=== PATIENT | male | born 1940 | race Caucasian/White ===

== ENCOUNTER 2023-09-25 01:39 | Outpatient (REF) | payer MEDICARE, SELFPAY ==
[2023-09-25 02:49] LABS: Bilirubin Negative (Negative); Blood Small (Negative); Clarity Sl Cloudy (Clear); Glucose Negative (Negative); Ketones 15 mg/dL (Negative); Leukocyte Esterase Small (Negative); Nitrite Negative (Negative); Specific Gravity >= 1.030 (1.005-1.025); Urobilinogen 0.2 mg/dL (Up to 0.2)
[2023-09-25 02:53] LABS: Bacteria Moderate HPF (Negative); C & S Indicated? C&S Done As Ordered; Casts Negative LPF (Negative); Crystals Negative HPF (Negative); Epithelial Cells Negative HPF (Negative); Mucus Negative (Negative); WBC >50 HPF (0-5)
== END 2023-09-25 01:40 | disposition home or self-care (01) ==
LOC: LBN 01:39
PROVIDERS: PCP Family Medicine; Visit Provider Family Medicine
DX: N39.0 Urinary tract infection, site not specified (principal); R82.89 Other abnormal findings on cytological and histological examination of urine
CPT/HCPCS: 87077; 81003; 81015; 87086; 87186

== ENCOUNTER 2023-10-15 16:57 | Outpatient (REF) | payer MEDICARE, SELFPAY ==
[2023-10-15 19:38] LABS: Bilirubin Negative (Negative); Blood Large (Negative); Clarity Sl Cloudy (Clear); Glucose Negative (Negative); Ketones 15 mg/dL (Negative); Leukocyte Esterase Moderate (Negative); Nitrite Negative (Negative); Urobilinogen 0.2 mg/dL (Up to 0.2)
[2023-10-15 19:52] LABS: Epithelial Cells Negative HPF (Negative); RBC >50 HPF (0-2); WBC >50 HPF (0-5)
[2023-10-15 19:53] LABS: Bacteria Moderate HPF (Negative); C & S Indicated? C&S Done As Ordered; Casts Negative LPF (Negative); Crystals Negative HPF (Negative); Mucus Moderate (Negative)
== END 2023-10-15 16:58 | disposition home or self-care (01) ==
LOC: LBN 16:57
PROVIDERS: PCP Family Medicine; Visit Provider Nurse Practitioner Family
DX: N39.0 Urinary tract infection, site not specified (principal); I10 Essential (primary) hypertension; R78.81 Bacteremia
CPT/HCPCS: 87077; 81003; 81015; 87086; 87186

== ENCOUNTER 2023-10-17 09:59 | Outpatient (REF) | payer MEDICARE, SELFPAY ==
[2023-10-17 17:02] LABS: Bilirubin Negative (Negative); Blood Large (Negative); Clarity Cloudy (Clear); Glucose Negative (Negative); Ketones Trace mg/dL (Negative); Leukocyte Esterase Moderate (Negative); Nitrite Positive (Negative); Specific Gravity 1.025 (1.005-1.025); Urobilinogen 0.2 mg/dL (Up to 0.2)
[2023-10-17 18:18] LABS: Epithelial Cells Rare HPF (Negative); WBC >50 HPF (0-5)
[2023-10-17 18:19] LABS: Bacteria Many HPF (Negative); C & S Indicated? C&S Done As Ordered; Casts Negative LPF (Negative); Crystals Negative HPF (Negative); Mucus Trace (Negative)
== END 2023-10-17 10:00 | disposition home or self-care (01) ==
LOC: LBN 09:59
PROVIDERS: PCP Family Medicine; Visit Provider Family Medicine
DX: N39.0 Urinary tract infection, site not specified (principal); I10 Essential (primary) hypertension
CPT/HCPCS: 81003; 81015; 87086

== ENCOUNTER 2023-10-23 17:26 | Outpatient (REF) | payer MEDICARE, SELFPAY | END 2023-10-23 17:27 | disposition home or self-care (01) | LOC: LBN 17:26 | PROVIDERS: PCP Family Medicine; Visit Provider Family Medicine | DX: L89.210 Pressure ulcer of right hip, unstageable (principal) | CPT/HCPCS: 87077; 87070; 87186; 87205 ==